=== PATIENT | female | born 1975 | race Caucasian/White ===

== ENCOUNTER 2016-05-27 07:28 | Emergency (ER) | payer BC ==
[~2016-05-27] VITALS: Ht 167.6 cm; Wt 108.4 kg
[~2016-05-27 07:28] MED LIST: CIPRO500 MG PO; CITRATE OF MAG296 ML PO; IBUPROFEN200 M1 PO; METAMUCIL POWD798 GM PO; MOTRIN600 MG PO; MOTRIN800 MG PO; NORCO 5/3251 TABLET PO; PERCOCET 5/31 TABLET PO; TYLENOL EXTRA500 MG PO; no home
[2016-05-27 08:27] LABS: HEMATOCRIT 42.1 % (36.0-46.0); MCH 29.2 PG (29.0-34.0); MCHC 34.4 G/DL (30.0-36.0); MCV 84.9 FL (83-99); PLATELET COUNT 334 K/uL (156-360); RBC DIS.WIDTH-SD 39.7 % (39-53); RED BLOOD COUNT 4.96 M/uL (3.80-5.20); WHITE BLOOD COUNT 10.2 K/uL (4.1-10.2)
[2016-05-27 08:53] LABS: ANION GAP 10 MEQ/L (2-14); CHLORIDE 104 MEQ/L (99-109); POTASSIUM 3.7 MEQ/L (3.7-5.4); SAMPLE HEMOLYSIS CHECK 0; SAMPLE ICTERIC CHECK 0; SAMPLE LIPEMIA CHECK 0; SODIUM 136 MEQ/L (136-147); TOTAL BILIRUBIN 0.6 MG/DL (0.0-1.0)
[2016-05-27 08:59] LABS: ALKALINE PHOSPHATASE 58 IU/L (3-129); GFR ESTIMATE (CALCULATED) > 59 mL/min/; GLUCOSE 112 mg/dL (70-99); LIPASE 26 U/L (1.0-51.0); UREA NITROGEN (BUN) 9 mg/dL (9-23)
[2016-05-27 09:01] LABS: QUANTITATIVE HCG < 4.0 MIU/ML
[2016-05-27] MEDS ORDERED: BENTYL20 MG PO (10:08)
[2016-05-27] MEDS ORDERED: PERCOCET 5/31 TABLET PO (10:08)
[2016-05-27] MEDS ORDERED: ZOFRAN ODT4 MG PO (10:08)
[2016-05-27] MEDS ORDERED: TORADOL10 MG PO (10:08)
[2016-05-27] MEDS ORDERED: MEDROXYPRO150 MG/1 M IM (11:38)
[2016-05-27] MEDS ORDERED: IBUPROFEN800 MG PO (11:39)
[2016-05-27] MEDS ORDERED: AUGMENTIN875 MG PO (12:17)
[2016-05-27 14:00] VITALS: BP 107/64
== END 2016-05-27 14:10 | disposition home or self-care (01) ==
LOC: EME 07:28
PROVIDERS: Nurse Practitioner Family
DX: K80.00 Calculus of gallbladder with acute cholecystitis without obstruction (principal); F17.200 Nicotine dependence, unspecified, uncomplicated
CPT/HCPCS: 76705; 80053; 81003; 83690; 84702; 85027; 99281; 99285; J1885; J2270; J2405; J2543; J7050

== ENCOUNTER 2016-06-03 11:26 | Observation (INO) | payer BC ==
[~2016-06-03] VITALS: Ht 170.2 cm; Wt 111.8 kg
[~2016-06-03 11:26] MED LIST changes: +AUGMENTIN875 MG PO; +BENTYL20 MG PO; +IBUPROFEN800 MG PO; +MEDROXYPRO150 MG/1 M IM; +TORADOL10 MG PO; +ZOFRAN ODT4 MG PO
[2016-06-03 12:40] LABS: HEMATOCRIT 42.2 % (36.0-46.0); MCH 28.9 PG (29.0-34.0); MCHC 33.2 G/DL (30.0-36.0); MCV 87.2 FL (83-99); MEAN PLAT.VOLUME 10.2 uM^3 (9.5-12.4); PLATELET COUNT 334 K/uL (156-360); RBC DIS.WIDTH-SD 41.1 % (39-53); RED BLOOD COUNT 4.84 M/uL (3.80-5.20); WHITE BLOOD COUNT 10.9 K/uL (4.1-10.2)
[2016-06-03] MEDS ORDERED: ENDOCET 5-3251 EACH PO (12:46)
[2016-06-03] MEDS ORDERED: KETOROLAC TROME10 MG PO (12:46)
[2016-06-03] MEDS ORDERED: BENTYL20 MG PO (12:46)
[2016-06-03] MEDS ORDERED: ONDANSETRON ODT4 MG PO (12:47)
[2016-06-03 12:48] LABS: CHLORIDE 108 mEq/L (99-109); POTASSIUM 4.1 mEq/L (3.7-5.4); SODIUM 138 mEq/L (136-147)
[2016-06-03 12:50] LABS: GLUCOSE 107 mg/dL (70-99)
[2016-06-03 12:52] LABS: ANION GAP 10 MEQ/L (2-14); TOTAL BILIRUBIN 0.3 mg/dL (0.0-1.0)
[2016-06-03 12:54] LABS: ALKALINE PHOSPHATASE 73 IU/L (3-129); GFR ESTIMATE (CALCULATED) > 59 mL/min/
[2016-06-03 12:55] LABS: UREA NITROGEN (BUN) 10 mg/dL (9-23)
[2016-06-03 12:56] LABS: DIRECT BILIRUBIN 0.2 mg/dL (0.0-0.3)
[2016-06-03 12:57] LABS: LIPASE 30 U/L (1.0-51.0)
[2016-06-03 16:19] VITALS: BP 112/66
[2016-06-03 19:15] VITALS: BP 116/71
[2016-06-04 00:27] VITALS: BP 104/56
[2016-06-04 04:00] VITALS: BP 91/58
[2016-06-04 06:15] LABS: ALKALINE PHOSPHATASE 54 IU/L (3-129); ANION GAP 6 MEQ/L (2-14); CHLORIDE 109 MEQ/L (99-109); GFR ESTIMATE (CALCULATED) > 59 mL/min/; GLUCOSE 92 mg/dL (70-99); MAGNESIUM 1.9 mg/dl (1.3-2.7); SAMPLE HEMOLYSIS CHECK 0; SAMPLE ICTERIC CHECK 0; SAMPLE LIPEMIA CHECK 0; SODIUM 141 MEQ/L (136-147); TOTAL BILIRUBIN 0.6 MG/DL (0.0-1.0); UREA NITROGEN (BUN) 7 mg/dL (9-23)
[2016-06-04 06:30] LABS: EOSINOPHIL (%) 1.9 % (0-5); EOSINOPHIL COUNT 0.1 K/uL (0-0.3); HEMATOCRIT 35.1 % (36.0-46.0); IMMATURE GRANULOCYTE (%) 0.3 % (0.0-0.7); INSTRUMENT ABS NEUTROPHIL CT 3.8 K/uL; MCH 28.7 PG (29.0-34.0); MCHC 32.8 G/DL (30.0-36.0); MCV 87.5 FL (83-99); MONOCYTE (%) 6.1 % (3-12); MONOCYTE COUNT 0.4 K/uL (0-0.8); NEUTROPHIL (%) 60.1 % (45-76); NEUTROPHIL COUNT 3.8 K/uL (1.8-6.4); PLATELET COUNT 280 K/uL (156-360); RBC DIS.WIDTH-CV 13.2 % (11.8-14.6); RBC DIS.WIDTH-SD 42.9 % (39-53); RED BLOOD COUNT 4.01 M/uL (3.80-5.20)
[2016-06-04 08:03] VITALS: BP 113/62
[2016-06-04 11:39] VITALS: BP 118/57
[2016-06-04 16:15] VITALS: BP 109/63
[2016-06-04 21:56] VITALS: BP 119/69
[2016-06-05 03:57] VITALS: BP 115/58
[2016-06-05 06:59] LABS: EOSINOPHIL (%) 0 % (0-5); HEMATOCRIT 35.7 % (36.0-46.0); IMMATURE GRANULOCYTE (%) 0.4 % (0.0-0.7); INSTRUMENT ABS NEUTROPHIL CT 7.6 K/uL; MCHC 33.3 G/DL (30.0-36.0); MCV 86.9 FL (83-99); MEAN PLAT.VOLUME 10.2 uM^3 (9.5-12.4); MONOCYTE (%) 3.7 % (3-12); MONOCYTE COUNT 0.3 K/uL (0-0.8); NEUTROPHIL (%) 84.4 % (45-76); NEUTROPHIL COUNT 7.6 K/uL (1.8-6.4); PLATELET COUNT 305 K/uL (156-360); RBC DIS.WIDTH-CV 12.9 % (11.8-14.6); RBC DIS.WIDTH-SD 41.1 % (39-53); RED BLOOD COUNT 4.11 M/uL (3.80-5.20)
[2016-06-05 07:20] LABS: ALKALINE PHOSPHATASE 56 IU/L (3-129); ANION GAP 10 MEQ/L (2-14); CHLORIDE 105 MEQ/L (99-109); GFR ESTIMATE (CALCULATED) > 59 mL/min/; MAGNESIUM 1.9 mg/dl (1.3-2.7); SAMPLE HEMOLYSIS CHECK 0; SAMPLE ICTERIC CHECK 0; SAMPLE LIPEMIA CHECK 0; SODIUM 138 MEQ/L (136-147); TOTAL BILIRUBIN 0.5 MG/DL (0.0-1.0); UREA NITROGEN (BUN) 12 mg/dL (9-23)
[2016-06-05 07:21] LABS: GLUCOSE 120 mg/dL (70-99)
[2016-06-05 08:55] VITALS: BP 133/77
[2016-06-05 12:16] VITALS: BP 136/71
[2016-06-05] MEDS ORDERED: NORCO 5/3251 TABLET PO (12:38)
== END 2016-06-05 14:29 | disposition home or self-care (01) ==
LOC: EME 11:26 → EDOF 15:28 → 5WEST 15:28 → EDOF 15:28 → 5EAST 15:28 → 5WEST 16:13 → 5EAST 06-04 21:55
PROVIDERS: Surgery
PROC: 0FT44ZZ Resection of Gallbladder, Percutaneous Endoscopic Approach (ICD-10-PCS; principal; 2016-06-04)
DX: K80.00 Calculus of gallbladder with acute cholecystitis without obstruction (principal); K76.0 Fatty (change of) liver, not elsewhere classified; F17.200 Nicotine dependence, unspecified, uncomplicated
CPT/HCPCS: 76705; 80053; 82248; 83690; 83735; 84100; 85025; 85027; 88304; 99281; 99285; G0378; J0131; J0330; J1100; J1170; J1335; J1650; J2270; J2405; J2543; J2710; J2765; J3010; J7030; J7050; J7120